=== PATIENT | female | born 1960 | race Caucasian/White ===

== ENCOUNTER → 2018-11-10 | Outpatient (CLI) | payer BC ==
[~2018-11-10] MED LIST: AZIT250T PO; FEXO180T61 PO; IBUP-1542 PO; LEVO50TA89 PO; PRED20TA PO
== END | disposition home or self-care (01) ==
LOC: LAB 10:06
PROVIDERS: ATTEND Internal Medicine
DX: Z00.00 Encounter for general adult medical examination without abnormal findings (principal)
CPT/HCPCS: 80053; 80061; 82306; 83036; 84436; 84443; 85025; 85651; 86038; 86140

== ENCOUNTER 2019-03-10 10:11 | Emergency (ER) | payer BC ==
[~2019-03-10] VITALS: Ht 165.1 cm; Wt 63.0 kg
[2019-03-10 10:13] VITALS: BP 148/73; PULSE 72; RESP 16; Ht 165.1 cm; Wt 63.0 kg
--- NOTE | 2019-03-10 11:11 | ERD ---
ER Documentation Chief Complaint Chief Complaint pt is bib self with c/o right foot pain x 10 days s/p fall HPI This patient is a 59-year-old female who presents with pain in her right foot since she fell and twisted her foot 10 days ago. She states it was much more swollen and bruised but now that has improved she still has pain when she ambulates. She is however able to ambulate. She has no numbness or tingling. She is been taking anti-inflammatories at home for the pain which is helping. ROS All systems reviewed and are negative except as per history of present illness. Medications Home Meds Active Scripts Azithromycin* (Zithromax*) 250 Mg Tablet, 250 MG PO .ZPACK DIRECTED, #6 TAB TAKE 500 MG (2 TABS) THE FIRST DAY THEN 250 MG (1 TAB) DAYS 2-5 Prov:JOE STAPLES PA-C 10/12/18 Prednisone* (Prednisone*) 20 Mg Tab, 60 MG PO DAILY for 5 Days, TAB Prov:TARI PATRICIA MD 01/27/16 Ibuprofen* (Motrin*) 600 Mg Tab, 600 MG PO Q6H PRN for PAIN AND OR ELEVATED TEMP, #30 TAB Prov:TARI PATRICIA MD 01/27/16 Reported Medications Fexofenadine Hcl* (Jennifer*) 180 Mg Tablet, PO BID 07/29/13 Levothyroxine Sodium* (Synthroid*) 50 Mcg Tablet, PO DAILY, 0 Refills 11/03/09 Allergies Allergies: Uncoded Allergies: EGGS (Allergy, Mild, RASH, 11/03/09) PMhx/Soc History of Surgery: Yes (HYSTERECTOMY -UNKNOWN,LEFT HIP REPLACEMENT UNKNOWN) Hx Neurological Disorder: No Hx Respiratory Disorders: No Hx Cardiac Disorders: No Hx Miscellaneous Medical Probl: No Hx Alcohol Use: No Hx Substance Use: No Hx Tobacco Use: No FmHx Family History: No diabetes Physical Exam Vitals Vital Signs Date Temp Pulse Resp B/P (MAP) Pulse Ox O2 O2 Flow FiO2 Time Delivery Rate 03/10/19 98.3 72 16 148/73 99 10:13 (98) Physical Exam INITIAL VITAL SIGNS: Reviewed by me GENERAL: Awake, alert and oriented x 4, well appearing, nontoxic, speaking in full sentences. No acute distress RESPIRATORY: Clear to auscultation bilaterally. Symmetric chest wall rise. No wheezing or rales. No accessory muscle use. CV: Regular rate and rhythm. No murmurs, rubs, or gallops. Lower Extremity -right: Skin: Swelling to dorsal surface of right foot over navicular bone Compartments: Soft Motor: Full active range of motion hip/knee/ankle/foot Sensation: Intact to light touch FDWS/MF/LF/P surfaces. Bones: Tender to palpation over navicular region, no malleoli or tenderness Joints: Dorsal soft tissue swelling of the foot, no ankle swelling Pulses/Perfusion: 2+ DP, Capillary refill < 2 seconds Procedures/MDM Patient has foot pain after fall that occurred 10 days ago. She is ambulatory and neurovascular intact but there is some tenderness and swelling of the foot. X-rays do reveal navicular chip fracture. She was placed in a short leg posterior splint and given crutches. She can continue taking Motrin at home as needed. She was given outpatient orthopedic follow-up. Patient counseled jonh zamarripa my diagnostic impression and care plan. Prior to discharge all questions answered. Pt agrees with treatment plan and understands strict return precautions. Pt is instructed to follow up with primary care provider within 24- 48 hours. Precautionary instructions provided including instructions to return to the ER if not improving or for any worsening or changing symptoms or bernard rns. Departure Diagnosis: Primary Impression: Foot fracture Condition: Stable Patient Instructions: Fracture, Foot Referrals: [facility] YOU HAVE RECEIVED A MEDICAL SCREENING EXAM AND THE RESULTS INDICATE THAT YOU DO NOT HAVE A CONDITION THAT REQUIRES URGENT TREATMENT IN THE EMERGENCY DEPARTMENT. FURTHER EVALUATION AND TREATMENT OF YOUR CONDITION CAN WAIT UNTIL YOU ARE SEEN IN YOUR DOCTORS OFFICE WITHIN THE NEXT 1-2 DAYS. IT IS YOUR RESPONSIBILITY TO MAKE AN APPOINTMENT FOR FOLOW-UP CARE. IF YOU HAVE A PRIMARY DOCTOR --you should call your primary doctor and schedule and appointment IF YOU DO NOT HAVE A PRIMARY DOCTOR YOU CAN CALL OUR PHYSICIAN REFERRAL HOTLINE AT . IF YOU CAN NOT AFFORD TO SEE A PHYSICIAN YOU CAN CHOSE FROM THE FOLLOWING [facility] INSTITUTIONS: [facility] [id number] [place] [address] [facility] [address] [place] [address] [facility] [address] [place] [address] [facility] Hours: Mon-Fri 9:00 AM - 5:00 PM Additional Instructions: Call your primary care doctor TOMORROW for an appointment during the next 1-2 days.See the doctor sooner or return here if your condition worsens before your appointment time. SPECIALIST: YOU HAVE A MEDICAL CONDITION WHICH REQUIRES YOU TO SEE A SPECIALIST WITHIN THE NEXT 1-2 DAYS. PLEASE FOLLOW UP WITH YOUR PRIMARY PHYSICIAN FOR REFFERAL.IF YOU DO NOT HAVE A PRIMARY CARE PHYSICIAN AND/OR YOU CAN NOT AFFORD TO SEE A PHYSICIAN THE FOLLOWING RESOURCES HAVE BEEN SUPPLIED TO YOU. IT IS YOUR RESPONSIBILITY TO BE SEEN BY THE SPECIALIST JOE STAPLES PA-C Mar 10, 2019 11:11
== END 2019-03-10 12:31 | disposition home or self-care (01) ==
LOC: FTE 10:11
DX: S92.251A Displaced fracture of navicular [scaphoid] of right foot, initial encounter for closed fracture (principal); X50.1XXA Overexertion from prolonged static or awkward postures, initial encounter; Y92.9 Unspecified place or not applicable; Z96.642 Presence of left artificial hip joint
CPT/HCPCS: 73630

== ENCOUNTER → 2019-03-28 | Outpatient (CLI) | payer BC | END | disposition home or self-care (01) | LOC: LAB 07:37 | PROVIDERS: ATTEND Internal Medicine | DX: E78.5 Hyperlipidemia, unspecified (principal); M79.671 Pain in right foot | CPT/HCPCS: 80061; 84560 ==

== ENCOUNTER → 2019-03-28 | Outpatient (CLI) | payer BC | END | disposition home or self-care (01) | LOC: RAD 07:44 | PROVIDERS: ATTEND Podiatrist Foot Surgery | DX: M79.671 Pain in right foot (principal) | CPT/HCPCS: 73630 ==